=== PATIENT | male | born 1980 | race Caucasian/White ===

== ENCOUNTER 2024-06-23 10:42 | Outpatient (OUT) | payer MEDICARE, SELFPAY ==
--- NOTE | 2024-06-23 10:55 | XR_ITS ---
[place] [address] Patient Name: JOSETTE SALAS MRN: [id number] date: 1980 Sex: M Assigned Patient Location: [facility] Current Patient Location: [facility] Accession/Order Number: [id number] Exam Date: 06/23/2024 18:41 Report Date: 06/23/2024 18:43 At the request of: HUMBERTO HAYNES MD Procedure: XR lumbar spine 2-3V 2 views Lumbar Spine HISTORY: Lower back pain COMPARISON: None POSTSURGICAL CHANGES: None BONY ALIGNMENT: Adequate HYPERMOBILITY:No bending imaging. LISTHESIS:None FRACTURE: None DEGENERATIVE CHANGES: Mild L5-S1 spondylosis. Lower lumbar facet degeneration SOFT TISSUES: Unremarkable BONY MINERALIZATION:Adequate XR/XR lumbar spine 2-3V IMPRESSION: Lower lumbar degenerative change Impression dictated by: Rajan Sanford M.D.06/23/2024 6:43 PM Dictation Location: [place] [address] Electronically authenticated by: [id number] Y Date: 06/23/2024 18:43
== END 2024-06-23 10:43 | disposition home or self-care (01) ==
LOC: RAD 10:47
PROVIDERS: PCP Family Medicine; Visit Provider Family Medicine
DX: M54.50 Low back pain, unspecified (principal); G89.29 Other chronic pain; M47.816 Spondylosis without myelopathy or radiculopathy, lumbar region; M51.369 Other intervertebral disc degeneration, lumbar region without mention of lumbar back pain or lower extremity pain
CPT/HCPCS: 72100

== ENCOUNTER 2024-11-21 20:44 | Emergency (ER) | payer MEDICARE, SELFPAY ==
[2024-11-21 21:13] VITALS: BP 120/71; PULSE 63; TEMP 36.9; O2SAT 96; BMI 35.0
[2024-11-21 21:30] LABS: Glucose Urine UA NEGATIVE (NEGATIVE)
[2024-11-21 21:40] LABS: Cast Seen? NONE SEEN #/LPF (NONE SEEN); Crystals Seen? None Seen #/HPF (None Seen)
[2024-11-21 21:41] LABS: Urine Culture Indicated NO
[2024-11-22] VITALS (8 sets, daily range): BP systolic 104–142; BP diastolic 52–87; PULSE 63–81; TEMP 36.8; O2SAT 89–97
--- NOTE | 2024-11-22 01:17 | ED_ITS ---
HPI HPI - General Adult General Chief complaint: Urogenital-Male Stated complaint: BLADDER PROBLEMS Time Seen by Provider: 11/22/24 01:15 Source: patient Mode of arrival: walk-in Limitations: no limitations History of Present Illness HPI narrative: complains of suprapubic pain for a couple of days . Increased pain today. No fever or nausea/vomiting . Denies past abdominal surgery. No respiratory symptoms. States Hard to have a BM. no rectal bleeding Related Data Home Medications ?Medication ?Instructions ?Recorded ?Confirmed No Known Home Medications 11/21/24 08/09/10 Allergies Allergy/AdvReac Type Severity Reaction Status Date / Time No Known Drug Allergies Allergy Verified 11/21/24 21:16 Opioid HPI Opioid Management Most Recent Opioid Data: Last Pain Scale 7 Today, 03:47 Last ED Pain Assessment Today, 02:12 Last MAR Pain Assessment Today, 01:50 Review of Systems ROS Status of ROS 10 or more systems reviewed and unremark able except as noted in history and below PFSH PFSH Social History Little interest or pleasure in doing things: not at all Feeling down, depressed, or hopeless: not at all Exam Constitutional Vital Signs, click to edit/add: Last Vital Signs Temp 98.5 F 11/21/24 21:13 Pulse 63 11/21/24 21:13 Resp 18 11/21/24 21:13 BP 104/52 11/22/24 03:30 Pulse Ox 89 L 11/22/24 03:30 O2 Del Method Room Air 11/21/24 21:13 Common normals: no apparent distress, average body habitus, oriented x3, no limitations, healthy appearing, alert and well nourished [facility] Common normals: normocephalic and head/scalp atraumatic Eye Common normals: EOMs intact bilaterally and conjunctivae normal Respiratory Common normals: normal respiratory effort, no retractions, no use of accessory muscles and clear to auscultation bilaterally Cardio Common normals: regular rate, regular rhythm, S1 normal heart sound and S2 normal heart sound GI Common normals: Normal to inspection, nondistended, normoactive bowel sounds present and soft to palpation Other: mild - mod suprapubic and LLQ tenderness Extremity Common normals: normal to inspection and full ROM Neuro Common normals: oriented x3, CN's II-XII intact bilaterally, moves all e xtremities and no focal motor deficits Psych Appearance: grossly normal Course Vital Signs Vital signs: Vital Signs Temperature 98.5 F 11/21/24 21:13 Pulse Rate 63 11/21/24 21:13 Respiratory Rate 18 11/21/24 21:13 Blood Pressure 120/71 11/21/24 21:13 Pulse Oximetry 96 11/21/24 21:13 Oxygen Delivery Method Room Air 11/21/24 21:13 Temperature 98.5 F 11/21/24 21:13 Pulse Rate 63 11/21/24 21:13 Respiratory Rate 18 11/21/24 21:13 Blood Pressure 104/52 11/22/24 03:30 Pulse Oximetry 89 L 11/22/24 03:30 Oxygen Delivery Method Room Air 11/21/24 21:13 Medical Decision Making MDM Narrative Medical decision making narrative: presents with 2 days of worsening LLQ and suprapubic pain. No fever or vomiting. CT with findings of colitis and contained perforation abscess measuring [id number]. Cipro and flagyl ordered. Discussed with Gen. Surgeon Dr Costa at [facility] and patient accepted in transfer Lab Data Labs: Lab Results 11/21/24 11/22/24 Range/Units 21:20 01:37 WBC 15.2 H (4.0-11.0) 10^3/uL RBC 5.67 (4.70-6.10) 10^6/uL Hgb 15.9 (14.0-18.0) g/dL Hct 46.7 (42.0-54.0) % MCV 82.4 (80.0-94.0) fL MCH 28.0 (25.9-34.0) pg MCHC 34.0 (29.9-35.2) g/dL RDW 13.3 (11.0-15.0) % Plt Count 248 (150-450) 10^3/uL MPV 8.8 L (9.5-13.5) fL Neut % (Auto) 76.9 H (43.0-75.0) % Lymph % (Auto) 13.0 L (20.5-60.0) % [place] % (Auto) 8.6 (1.7-12.0) % Eos % (Auto) 0.6 L (0.9-7.0) % Baso % (Auto) 0.5 (0.2-2.0) % Neut # (Auto) 11.7 H (1.4-6.5) 10^3/uL Lymph # (Auto) 2.0 (1.2-3.8) 10^3/uL [place] # (Auto) 1.3 H (0.3-0.8) 10^3/uL Eos # (Auto) 0.1 (0.0-0.7) 10^3/uL Baso # (Auto) 0.1 (0.0-0.1) 10^3/uL Abs Immat Gran (auto) 0.06 H (0.00-0.03) 10^3/uL Imm/Tot Granulo (auto) 0.4 (0.0-0.5) % Sodium 139 (136-145) mmol/L Potassium 3.6 (3.5-5.1) mmol/L Chloride 102 (98-107) mmol/L Carbon Dioxide 28.9 (21.0-32.0) mmol/L Anion Gap 11.7 BUN 11.0 (7.0-18.0) mg/dL Creatinine 1.15 (0.70-1.30) mg/dL Est GFR ( Amer) >60 (>=60 mL/min/1.73m^2) Est GFR (Non-Af Amer) >60 (>=60 mL/min/1.73m^2) BUN/Creatinine Ratio 9.6 Glucose 111 H (74-106) mg/dL Lactate 1.5 (0.4-2.0) mmol/L Calcium 9.5 (8.5-10.1) mg/dL Total Bilirubin 0.7 (0.2-1.0) mg/dL AST 15 (15-37) U/L ALT 26 (16-63) U/L Alkaline Phosphatase 50 (46-116) U/L Total Protein 7.7 (6.4-8.2) g/dL Albumin 3.4 (3.4-5.0) g/dL Globulin 4.3 g/dL Albumin/Globulin Ratio 0.8 Lipase 27.0 (16.0-77.0) U/L Urine Color Yellow (YELLOW) Urine Clarity Clear (CLEAR) Urine pH 6.0 (5.0-9.0) Ur Specific [place] 1.025 (1.005-1.025) Urine Protein Trace (NEG/TRACE) mg/dL Urine Glucose (UA) Negative (NEGATIVE) mg/dL Urine Ketones 15 A (NEGATIVE) mg/dL Urine Occult Blood Negative (NEGATIVE) Urine Nitrite Negative (NEGATIVE) Urine Bilirubin Negative (NEGATIVE) Urine Urobilinogen 1.0 (0.2-1.0) EU/dL Ur Leukocyte Esterase Negative (NEGATIVE) Urine RBC None seen (0-2) #/HPF Urine WBC 0-2 A (NONE SEEN) #/HPF Ur Squamous Epith Cells Rare (NONE/RARE) #/LPF Urine Crystals None seen (None Seen) #/HPF Urine Bacteria Trace A (NONE SEEN) #/HPF Urine Casts None seen (NONE SEEN) #/LPF Urine Mucus Small A (NONE SEEN) Ur Culture Indicated? No Discharge Plan Discharge Chief Complaint: Urogenital-Male Clinical Impression: Colitis, Abscess of sigmoid colon Patient Disposition: [facility]
[2024-11-22 01:49] LABS: Hematocrit 46.7 % (42.0-54.0); Hemoglobin 15.9 g/dL (14.0-18.0); Immature Granulocytes Abs Auto 0.06 10^3/uL (0.00-0.03); Immature Granulocytes Pct Auto 0.4 % (0.0-0.5); Lymphocytes Absolute Auto 2.0 10^3/uL (1.2-3.8); Mean Corpuscular HGB Conc 34.0 g/dL (29.9-35.2); Mean Corpuscular Hemoglobin 28.0 pg (25.9-34.0); Mean Corpuscular Volume 82.4 fL (80.0-94.0); Platelet Count 248 10^3/uL (150-450); Red Blood Count 5.67 10^6/uL (4.70-6.10); White Blood Count 15.2 10^3/uL (4.0-11.0)
[2024-11-22] MEDS: FENTANYL CITRATE/PF 100 MCG/2 ML VIAL IV ×3 (01:50→05:33)
[2024-11-22 02:04] LABS: Alanine Aminotransferase 26 U/L (16-63); Albumin Globulin Ratio 0.8; Albumin Level 3.4 g/dL (3.4-5.0); Alkaline Phosphatase 50 U/L (46-116); Anion Gap 11.7; Aspartate Amino Transferase 15 U/L (15-37); Blood Urea Nitrogen 11.0 mg/dL (7.0-18.0); Calcium 9.5 mg/dL (8.5-10.1); Carbon Dioxide 28.9 mmol/L (21.0-32.0); Chloride 102 mmol/L (98-107); Estimated GFR (African America >60 (>=60 mL/min/1.73m^2); Estimated GFR (Non-African Ame >60 (>=60 mL/min/1.73m^2); Globulin 4.3 g/dL; Glucose 111 mg/dL (74-106); Lipase 27.0 U/L (16.0-77.0); Potassium 3.6 mmol/L (3.5-5.1); Sodium 139 mmol/L (136-145); Total Protein 7.7 g/dL (6.4-8.2)
[2024-11-22 02:07] LABS: Lactate/Lactic Acid 1.5 mmol/L (0.4-2.0)
[2024-11-22] MEDS: CIPROFLOXACIN IN 5 % DEXTROSE 400 MG/200 ML PREMIX 200 MG IV (05:16)
[2024-11-22] MEDS: METRONIDAZOLE/SODIUM CHLORIDE 500 MG/100 ML PREMIX 100 MG IV (06:15)
[2024-11-22] MEDS: MORPHINE SULFATE 4 MG/ML VIAL IV ×2 (08:06→11:16)
== END 2024-11-22 12:10 | disposition short-term general hospital (02) ==
PROVIDERS: Emergency Provider Internal Medicine; PCP Family Medicine
DX: K63.1 Perforation of intestine (nontraumatic) (principal); K63.0 Abscess of intestine; K52.9 Noninfective gastroenteritis and colitis, unspecified
CPT/HCPCS: 36415; 74177; 80053; 81001; 83605; 83690; 85025; 96365; 96366; 96368; 96375; 96376; 99285; J0744; J1836; J2270; J2405; J3010; Q9967